=== PATIENT | male | born 1990 | race African-American/Black ===

== ENCOUNTER 2020-03-14 13:47 | Emergency (ER) | payer SELFPAY ==
[2020-03-14] MEDS ORDERED: cefTRIAXone\\ROCEPHIN 250 MG VIAL ONE (14:20)
[2020-03-14] MEDS ORDERED: Lidocaine 1% (PF) 30 ML VIAL ONE (14:20)
[2020-03-14] MEDS ORDERED: Azithromycin 250 MG TAB ONE (14:20)
[2020-03-17 00:11] LABS: Chlam.trachomatis by PCR,Urine DETECTED (NotDetected)
== END 2020-03-14 14:46 | disposition home or self-care (01) ==
LOC: NAV ERS 13:47
DX: R51 Headache (principal); N34.2 Other urethritis; F17.210 Nicotine dependence, cigarettes, uncomplicated
CPT/HCPCS: 87491; 87591; 96372; 99284; J0696; J2001